=== PATIENT | male | born 1980 | race Asian ===

== ENCOUNTER 2017-08-03 18:48 | Emergency (ER) | payer BC ==
[~2017-08-03] VITALS: Ht 185.4 cm; Wt 88.5 kg
[2017-08-03 18:52] VITALS: BP 134/86
== END 2017-08-03 19:34 | disposition home or self-care (01) ==
LOC: ER 18:58
DX: B00.1 Herpesviral vesicular dermatitis (principal)
CPT/HCPCS: A4606; Z7610